=== PATIENT | male | born 1970 | race Caucasian/White ===

== ENCOUNTER 2020-02-16 15:18 | Day surgery (SDC) | payer BC ==
[~2020-02-16] VITALS: Ht 177.8 cm; Wt 88.6 kg
[2020-02-16] MEDS ORDERED: FLOMAX 0.40.4 MG/CAP PO (15:48)
[2020-02-16] MEDS ORDERED: ZOLOFT 100MG100 MG PO (15:48)
[2020-02-16] MEDS ORDERED: DAZIDOX10 MG PO (15:49)
[2020-02-16] MEDS ORDERED: FLEXERIL 1010 MG/TAB PO (15:49)
[2020-02-16] MEDS ORDERED: LOTREL 5/20 CAP1 CAP PO (15:49)
[2020-02-16] MEDS ORDERED: PRILOTC PO (15:50)
[2020-02-16 16:13] VITALS: BP 94/64; PULSE 74; TEMP 98.2
--- NOTE | 2020-02-16 18:29 | NUR ---
pt to room 322 per cart with report from Yanira RAMIREZ PACU @1810. PRIOR TO GETTING SETTLED PT WENT TO BR AND HAS STAYED IN BR VOIDING SLOWLY. PT DENIES PAIN, NAUSEA,LIGHT HEADEDNESS.
[2020-02-16 18:30] VITALS: BP 100/64; PULSE 73; TEMP 98.2
--- NOTE | 2020-02-16 18:54 | NUR ---
REPORT TO CRIS RAMIRZE.
[2020-02-16 19:45] VITALS: BP 103/68; PULSE 87; TEMP 98.2
[2020-02-16 20:15] VITALS: BP 122/83; PULSE 71
--- NOTE | 2020-02-16 20:15 | NUR ---
Pt. has met discharge criteria.
--- NOTE | 2020-02-16 20:30 | NUR ---
Pt. given discharge paper work. Pt. given education, health summary, discharge instructions, Scripts were given to to fill, prior to discharge. Pt. voices understanding. INT discontinued from rt. hand. Pt. dressed and escorted out by psych coordinator.
== END 2020-02-16 20:30 | disposition home or self-care (01) ==
LOC: SDCO 15:18 → SURG 18:00 → SDCO 20:30
DX: N20.1 Calculus of ureter (principal); F41.9 Anxiety disorder, unspecified; F43.10 Post-traumatic stress disorder, unspecified; I10 Essential (primary) hypertension; G47.33 Obstructive sleep apnea (adult) (pediatric); K21.9 Gastro-esophageal reflux disease without esophagitis; G89.29 Other chronic pain; M54.5 Low back pain; Z88.6 Allergy status to analgesic agent; Z88.8 Allergy status to other drugs, medicaments and biological substances; Z90.49 Acquired absence of other specified parts of digestive tract
CPT/HCPCS: OP; C1769; C2617; J0690; J1100; J2405; J2704; J3010; J7120; Q9967

== ENCOUNTER → 2020-02-16 | Outpatient (CLI) | payer BC ==
[~2020-02-16] MED LIST: DAZIDOX10 MG PO; FLEXERIL 1010 MG/TAB PO; FLOMAX 0.40.4 MG/CAP PO; LOTREL 5/20 CAP1 CAP PO; PRILOTC PO; ZOLOFT 100MG100 MG PO
== END ==
LOC: ZCOL.LAB 17:37
DX: Z01.89 Encounter for other specified special examinations (principal)

== ENCOUNTER 2021-07-21 08:18 | Outpatient (RCR) | payer OTHER | END 2021-08-05 | LOC: MKS.ESL.PT | DX: M54.59 Other low back pain (principal) ==

== ENCOUNTER 2021-10-07 08:54 | Day surgery (SDC) | payer BC ==
[~2021-10-07] VITALS: Ht 177.8 cm; Wt 93.2 kg
[2021-10-07 10:17] VITALS: BP 121/93; PULSE 94; TEMP 97.7
[2021-10-07 11:45] VITALS: BP 129/53; PULSE 84; TEMP 98
[2021-10-07 12:00] VITALS: BP 125/99; PULSE 79; TEMP 98.7
== END 2021-10-07 12:54 | disposition home or self-care (01) ==
LOC: SDCO 08:54
DX: K21.9 Gastro-esophageal reflux disease without esophagitis (principal); K44.9 Diaphragmatic hernia without obstruction or gangrene; K92.1 Melena; K64.1 Second degree hemorrhoids; I10 Essential (primary) hypertension; G47.33 Obstructive sleep apnea (adult) (pediatric); G89.29 Other chronic pain; M54.50 Low back pain, unspecified; Z87.891 Personal history of nicotine dependence; Z85.828 Personal history of other malignant neoplasm of skin
CPT/HCPCS: J2704; J7030

== ENCOUNTER 2023-01-04 09:19 | Emergency (ER) | payer BC ==
[2023-01-04 09:27] VITALS: TEMP 98.1
[2023-01-04 10:26] VITALS: BP 162/82; PULSE 86
== END 2023-01-04 10:37 | disposition home or self-care (01) ==
LOC: COL.ER 09:19
DX: S61.250A Open bite of right index finger without damage to nail, initial encounter (principal); W55.01XA Bitten by cat, initial encounter; Y92.71 Barn as the place of occurrence of the external cause

== ENCOUNTER 2023-12-03 10:27 | Day surgery (SDC) | payer OTHER, BC ==
[~2023-12-03] VITALS: Ht 177.8 cm; Wt 95.4 kg
[~2023-12-03 10:27] MED LIST changes: +Famotidine 20 MG TAB PO SCH; +LR 1,000 ML IV SCH; +Metoclopramide 10 MG TAB PO SCH
[2023-12-03] MEDS ORDERED: JARDIANCE25 (11:04)
[2023-12-03] MEDS ORDERED: NIZORAL SHAMPO120 M1 TP (11:04)
[2023-12-03] MEDS ORDERED: IMODIUM 2MG CAPS2 MG PO (11:05)
[2023-12-03] MEDS ORDERED: MINIPRESS 5M5 MG/CAP PO (11:06)
[2023-12-03] MEDS ORDERED: GOOD NEIGH3.4 GM/Dos PO (11:07)
[2023-12-03] MEDS ORDERED: K-TAB20 PO (11:09)
[2023-12-03] MEDS ORDERED: Succinylcholine PF 200 MG/10 ML SYRINGE IV ONE (11:57)
[2023-12-03] MEDS ORDERED: fentaNYL 50 MCG/ML 2 ML VIAL ONE ×2 (11:58→14:19)
[2023-12-03] MEDS ORDERED: Lidocaine PF 2% (20 MG/ML) 5 ML VIAL ONE (11:58)
[2023-12-03] MEDS ORDERED: Rocuronium 50 MG/5 ML Multi-Dose VIAL ONE ×2 (11:59→13:31)
[2023-12-03] MEDS ORDERED: NS 10 ML IV ONE (12:00)
[2023-12-03] MEDS ORDERED: NORCO 325 MG-51 TAB PO (12:35)
[2023-12-03] MEDS ORDERED: Naloxone 0.4 MG/ML VIAL IV PRN (12:45)
[2023-12-03] MEDS ORDERED: Ondansetron 4 MG/2 ML VIAL IV PRN ×2 (12:45→13:00)
[2023-12-03 12:46] VITALS: BP 113/77; PULSE 51; TEMP 97.4
[2023-12-03] MEDS ORDERED: Ondansetron 4 MG/2 ML VIAL ONE (12:46)
[2023-12-03] MEDS ORDERED: dexAMETHasone 10 MG/ML VIAL ONE (12:46)
[2023-12-03] MEDS ORDERED: Meperidine 50 MG/ML 1 ML VIAL IV PRN (13:00)
[2023-12-03] MEDS ORDERED: fentaNYL 50 MCG/ML 1 ML SYRINGE/VIAL [PACU/SDC ONLY] IV PRN (13:00)
[2023-12-03] MEDS ORDERED: HYDROmorphone 1 MG/1 ML SYRINGE [PACU/SDC ONLY] IV PRN (13:00)
[2023-12-03] MEDS ORDERED: hydrALAZINE 20 MG/ML 1 ML VIAL IV PRN (13:00)
[2023-12-03] MEDS ORDERED: Ketorolac 30 MG/ML VIAL ONE (14:12)
[2023-12-03 15:35] VITALS: BP 103/61; PULSE 68; TEMP 97.5
[2023-12-03 15:45] VITALS: BP 109/68; PULSE 66
[2023-12-03 16:00] VITALS: BP 103/62; PULSE 64
[2023-12-03 16:16] VITALS: BP 103/61; PULSE 68
--- NOTE | 2023-12-03 16:52 | NUR ---
1525 Received report from JAMES MARCUM, PACU. 1535 Patient returned to bay 3. Patient is alert and answers questions appropriately. 3 [facility] COVERING SURGICAL SITES DRY AND INTACT 1545 Patient given apple juice and muffins for a PO challenge. Tolerated well. 1620 Patient up to restroom and urinated without difficulty. Physician discharge instructions and printed patient educational materials reviewed with the patient and his . Questions invited and answered. 1635 Patient to lobby via wheelchair for a ride home with in POV.
== END 2023-12-03 16:35 | disposition home or self-care (01) ==
LOC: SDCO 10:27
DX: K40.20 Bilateral inguinal hernia, without obstruction or gangrene, not specified as recurrent (principal); K42.9 Umbilical hernia without obstruction or gangrene; K21.9 Gastro-esophageal reflux disease without esophagitis; G47.33 Obstructive sleep apnea (adult) (pediatric); Z90.49 Acquired absence of other specified parts of digestive tract; Z87.891 Personal history of nicotine dependence
CPT/HCPCS: C1781; J0690; J1100; J1170; J1885; J2405; J2704; J3010; J7120